=== PATIENT | female | born 1985 | race Caucasian/White ===

== ENCOUNTER → 2022-12-29 10:09 | Outpatient (CLI) | payer OTHER, SELFPAY ==
--- NOTE | 2022-12-29 10:13 | DI.RAD.S_ITS ---
PROCEDURE: XR ANKLE LT MIN 3V INDICATIONS: Ankle injury TECHNIQUE: 3 views of the ankle were acquired. COMPARISON: None. FINDINGS: Bones: No fractures or dislocations. Ankle mortise is normally aligned. No suspicious bony lesions. Soft tissues: No tibiotalar joint effusion. Soft tissue swelling around the ankle. Achilles tendon appears normal. IMPRESSION: No acute osseous abnormality. Soft tissue swelling around the ankle. Dictated by: Marcos Schulz M.D. on 12/29/2022 at 9:29 Approved by: Marcos Schulz M.D. on 12/29/2022 at 9:32
--- NOTE | 2022-12-29 10:13 | DI.RAD.S_ITS ---
PROCEDURE: XR FOOT LT MIN 3V INDICATIONS: Foot injury TECHNIQUE: 3 views of the foot were acquired. COMPARISON: None. FINDINGS: Bones: No fractures or dislocations. No suspicious bony lesions. Soft tissues: No tibiotalar joint effusion. Achilles tendon appears normal. IMPRESSION: No acute abnormality of the left foot. Dictated by: Marcos Schulz M.D. on 12/29/2022 at 9:32 Approved by: Marcos Schulz M.D. on 12/29/2022 at 9:34
== END ==
PROVIDERS: Referring Provider Physician Assistant; Visit Provider Physician Assistant
DX: M25.572 Pain in left ankle and joints of left foot (principal); M79.672 Pain in left foot; M79.89 Other specified soft tissue disorders
CPT/HCPCS: 73610; 73630